=== PATIENT | female | born 1960 | race Caucasian/White ===

== ENCOUNTER 2018-10-21 13:11 | Emergency (ER) | payer BC, OTHER ==
[~2018-10-21] VITALS: Ht 167.6 cm; Wt 78.9 kg
[2018-10-21 13:51] LABS: BASOPHILS 0.6 % (0.0-2.0); EOSINOPHILS 1.5 % (0.0-3.0); HEMATOCRIT 38.8 % (37.0-47.0); LYMPHOCYTES 25.8 % (24.0-44.0); MCH 29.6 pg (26.0-34.0); MCHC 33.5 g/dL (28.0-37.0); MCV 88.3 fL (80.0-100.0); MONOCYTES 8.5 % (1.0-8.0); PLATELET COUNT 200 thou/uL (150-400); POLYS 63.6 % (36.0-66.0); WBC 6.2 thou/uL (4.0-11.0)
[2018-10-21 13:55] LABS: ANION GAP 11 mmol/L (7-16); BUN 17 mg/dL (7-18); CALCIUM 9.2 mg/dL (8.5-10.1); CHLORIDE 102 mmol/L (98-107); CO2 27 mmol/L (21-32); GLUCOSE 95 mg/dL (74-106); POTASSIUM 4.3 mmol/L (3.5-5.1); SODIUM 140 mmol/L (136-145)
[2018-10-21 14:05] LABS: ALBUMIN 4.2 g/dL (3.4-5.0); MAGNESIUM 2.2 mg/dL (1.8-2.4); SGOT 18 U/L (15-37); SGPT 29 U/L (30-65); TOTAL BILIRUBIN 0.3 mg/dL (<0.1-1.0); TOTAL PROTEIN 7.3 g/dL (6.4-8.2); TROPONIN-I <0.06 ng/mL (<0.06)
[2018-10-21 15:02] LABS: URINE BILIRUBIN NEGATIVE (Negative); URINE BLOOD TRACE (Negative); URINE CLARITY CLEAR; URINE COLOR YELLOW; URINE GLUCOSE-RANDOM* NEGATIVE (Negative); URINE KETONES NEGATIVE (Negative); URINE NITRITE-REFLEX NEGATIVE (Negative); URINE PROTEIN (DIPSTICK) NEGATIVE (Negative); URINE SPECIFIC GRAVITY <= 1.005 (1.005-1.035); URINE UROBILINOGEN 0.2 E.U./dl (0.2-1.0)
[2018-10-21 15:03] LABS: URINE LEUKOCYTES-REFLEX 1+ (Negative)
[2018-10-21 15:08] LABS: AMP/METHAMP Negative (Negative); BARBITURATES Negative (Negative); BENZODIAZEPINES Negative (Negative); COCAINE Negative (Negative); METHADONE Negative (Negative); OPIATES Negative (Negative); PCP Negative (Negative)
[2018-10-21] MEDS ORDERED: NAPROSYN500 MG PO (15:16)
[2018-10-21] MEDS ORDERED: NORFLEX100 MG PO (15:16)
[2018-10-21 15:31] VITALS: BP 132/65
[2018-10-21 15:40] LABS: BACTERIA-REFLEX 1-9 Few /HPF (None Seen); CASTS None Seen /LPF (None Seen); CRYSTALS None Seen /LPF (None Seen); SQUAMOUS 0-3 Few /LPF (0-3); URINE RBC 0-2 Rare /HPF (0-2); URINE WBC-REFLEX 0-5 Rare /HPF (0-5)
--- NOTE | 2018-10-22 18:40 | EKG ---
[place] [address] [facility] [place] [address] ELECTROCARDIOGRAM REPORT Name: CORNELL HOLT REGLA Room #: DEP [facility] COUNTYKalpesh#: [id number] ������������������ Admission: 10/21/18 ������������������ Attend Phys: Discharge: 10/21/18 ������������������ Date of : 62 Report #: [id number] ����������������������������������������������������������������� [id number] THIS REPORT FOR: //name[facility] Test Date: 2018-10-21 Test Time: 13:29:38 Pat Name: CORNELL HOLT Department: Room: Gender: F Machine Technician: DIANNA : 1960 Requested By: Michael Mae Order Number: [id number] MD: Matheus Moraes Measurements Intervals [place] Rate: 61 P: 47 NC: 139 QRS: 47 QRSD: 90 T: 43 QT: 398 QTc: 401 Interpretive Statements Sinus rhythm Early transition Baseline artifact Small Inferior Q waves significance unknown Baseline wander in lead(s) V6 No previous ECG available for comparison Electronically Signed On 10-22-2018 18:40:29 CDT by Matheus Moraes [email or web address] ��������������������������������������������� <ELECTRONICALLY SIGNED> ���������������������������������������� By: Matheus Moraes MD ��������������������������������������������� 10/22/18 1840 28 Matheus Moraes MD /EPI
== END 2018-10-21 15:32 | disposition home or self-care (01) ==
LOC: ER 13:11
PROVIDERS: Emergency Medicine
DX: S62.102D Fracture of unspecified carpal bone, left wrist, subsequent encounter for fracture with routine healing (principal); R42 Dizziness and giddiness; M43.6 Torticollis; X58.XXXD Exposure to other specified factors, subsequent encounter